=== PATIENT | male | born 1995 | race Caucasian/White ===

== ENCOUNTER 2017-05-30 12:30 | Emergency (ER) | payer SELFPAY ==
[2017-05-30] MEDS ORDERED: NORMAL SALINE 1000 ML 1,000 ML IV ONE (13:09)
--- NOTE | 2017-05-30 13:11 | ER Document Report ---
ED Medical Screen (RME) - General Chief Complaint: Nausea/Vomiting/Diarrhea Stated Complaint: ABDOMINAL PAIN Time Seen by Provider: 05/30/17 13:09 Mode of Arrival: Ambulatory Information source: Patient - HPI Patient complains to provider of: abd pain Onset: Yesterday - pot. with c/o "stomach flu" since yesterday with occ. AU and vomiting and diarrhea times 2 - Related Data Allergies/Adverse Reactions: iodine Allergy (Verified 05/30/17 12:52) Penicillins Allergy (Verified 05/30/17 12:52) Sulfa (Sulfonamide Antibiotics) Allergy (Verified 05/30/17 12:52) Home Medications: Current Home Medications No Home Medications 05/30/17 [History] Past Medical History - Social History Chew tobacco use (# tins/day): No Frequency of alcohol use: None Drug Abuse: None Renal/ Medical History: Denies: Hx Peritoneal Dialysis Past Surgical History: Reports: Hx Abdominal Surgery - hernia, Hx Cholecystectomy, Hx Orthopedic Surgery - Right hand, Hx Tonsillectomy - T&A - Immunizations Hx Diphtheria, Pertussis, Tetanus Vaccination: Yes Physical Exam - Vital signs Vitals: Temp Pulse BP Pulse Ox 99.1 F 110 H 117/75 97 05/30/17 12:48 05/30/17 12:48 05/30/17 12:48 05/30/17 12:48 Course - Vital Signs Vital signs: Temp Pulse Resp BP Pulse Ox 99.1 F 110 H 117/75 97 05/30/17 12:48 05/30/17 12:48 05/30/17 12:48 05/30/17 12:48
[2017-05-30 13:36] LABS: ABSOLUTE BASOPHILS # (AUTO) 0.1 10^3/uL (0.0-0.2); ABSOLUTE EOSINOPHILS # (AUTO) 0.4 10^3/uL (0.0-0.6); ABSOLUTE LYMPHOCYTES (AUTO) 1.6 10^3/uL (0.5-4.7); ABSOLUTE MONOCYTES (AUTO) 0.8 10^3/uL (0.1-1.4); ABSOLUTE NEUT (AUTO) 6.5 10^3/uL (1.7-8.2); BASOPHILS % (AUTO) 0.6 % (0-2); HEMATOCRIT 45.8 % (37.9-51.0); HEMOGLOBIN 15.6 g/dL (13.5-17.0); LYMPHOCYTES % (AUTO) 16.8 % (13-45); MEAN CORPUSCULAR HEMOGLOBIN 26.8 pg (27.0-33.4); MEAN CORPUSCULAR VOLUME 79 fl (80-97); MONOCYTES % (AUTO) 8.7 % (3-13); RED BLOOD COUNT 5.82 10^6/uL (4.35-5.55); RED CELL DISTRIBUTION WIDTH 13.4 % (11.5-14.0); SEGMENTED NEUTROPHILS % (AUTO) 69.9 % (42-78); WHITE BLOOD COUNT 9.3 10^3/uL (4.0-10.5)
[2017-05-30 13:40] LABS: APPEARANCE,URINE CLEAR; BILIRUBIN,URINE NEGATIVE (NEGATIVE); GLUCOSE, URINE NEGATIVE (NEGATIVE); KETONES,URINE NEGATIVE (NEGATIVE); LEUKOCYTE ESTERASE,URINE NEGATIVE (NEGATIVE); NITRITE,URINE NEGATIVE (NEGATIVE); PROTEIN,URINE NEGATIVE (NEGATIVE); URINE SPECIFIC GRAVITY 1.028
[2017-05-30 13:54] LABS: ALANINE AMINOTRANSFERASE 44 U/L (21-72); ALBUMIN 5.2 g/dL (3.5-5.0); ALKALINE PHOSPHATASE 106 U/L (38-126); ANION GAP 18 (5-19); ASPARTATE AMINO TRANSFERASE 21 U/L (17-59); BILIRUBIN,DIRECT 0.4 mg/dL (0.0-0.4); BILIRUBIN,TOTAL 0.8 mg/dL (0.2-1.3); BLOOD UREA NITROGEN 11 mg/dL (7-20); CALCIUM 10.3 mg/dL (8.4-10.2); CARBON DIOXIDE 24 mmol/L (22-30); CHLORIDE 101 mmol/L (98-107); CREATININE RESULT 1.04 mg/dL (0.52-1.25); GLUCOSE 114 mg/dL (75-110); POTASSIUM 3.9 mmol/L (3.6-5.0); SODIUM 142.6 mmol/L (137-145); TOTAL PROTEIN 7.5 g/dL (6.3-8.2)
[2017-05-30] MEDS ORDERED: ONDANSETRON HCL INJ/PF 4 MG/2 ML SDV IV ONE (14:39)
[2017-05-30] MEDS ORDERED: KETOROLAC TROMETHAMINE INJ/PF 30 MG/1 ML SDV IV ONE (14:39)
--- NOTE | 2017-05-30 14:44 | ER Document Report ---
ED General - General Chief Complaint: Nausea/Vomiting/Diarrhea Stated Complaint: ABDOMINAL PAIN Time Seen by Provider: 05/30/17 13:09 Mode of Arrival: Ambulatory Notes: 21-year-old male with history of cystic fibrosis presents with multiple symptoms. Symptoms started upon awakening yesterday morning with a sore throat which is slightly better now. He has had progressive cough with some purulent sputum rhinorrhea and eventually some vomiting and diarrhea associated. He has had some general weakness and general malaise. No specific pain but just generally uncomfortable. Has had some subjective fever. He does use Symbicort as well as a rescue inhaler of which he used the Symbicort this morning. Really has no specific shortness of breath. One loose stool today. No vomiting but really has not taken much in at this point. No specific chest pain. No specific abdominal discomfort as well. - Related Data Allergies/Adverse Reactions: iodine Allergy (Verified 05/30/17 12:52) Penicillins Allergy (Verified 05/30/17 12:52) Sulfa (Sulfonamide Antibiotics) Allergy (Verified 05/30/17 12:52) Past Medical History - General Information source: Patient - Social History Smoking Status: Never Smoker Chew tobacco use (# tins/day): No Frequency of alcohol use: None Drug Abuse: None Family History: Reviewed & Not Pertinent Pulmonary Medical History: Reports: Other - Cystic fibrosis Renal/ Medical History: Denies: Hx Peritoneal Dialysis Past Surgical History: Reports: Hx Abdominal Surgery - hernia, Hx Cholecystectomy, Hx Orthopedic Surgery - Right hand, Hx Tonsillectomy - T&A - Immunizations Hx Diphtheria, Pertussis, Tetanus Vaccination: Yes Review of Systems - Review of Systems -: Yes All other systems reviewed and negative Physical Exam - Vital signs Vitals: Temp Pulse BP Pulse Ox 99.1 F 110 H 117/75 97 05/30/17 12:48 05/30/17 12:48 05/30/17 12:48 05/30/17 12:48 - Notes Notes: GENERAL: VS as per nursing doc. Well-appearing, well-nourished and in no acute distress. HEAD: Atraumatic, normocephalic. EYES: Pupils equal round and reactive to light, extraocular movements intact, sclera anicteric, no conjunctival injection or discharge. ENT: Nares patent, oropharynx clear without exudates, slightly dry mucous membranes, very mild posterior erythema. NECK: Normal range of motion, supple without lymphadenopathy. LUNGS: Breath sounds clear to auscultation bilaterally and equal. No wheezes rales or rhonchi. HEART: Tachycardic, normal rhythm, no murmurs. ABDOMEN: Soft, mild generalized tenderness, hyperactive bowel sounds. No guarding, no rebound. No masses appreciated. No Hammond sign. BACK: No CVA tenderness. EXTREMITIES: Normal range of motion, no calf tenderness, no edema. NEUROLOGICAL: Cranial nerves grossly intact. Normal speech. Normal sensory and motor exams. No gross cerebellar abnormalities. PSYCH: Normal mood, normal affect. SKIN: Warm, dry, normal turgor, no lesions noted. Course - Re-evaluation Re-evalutation: 05/30/17 16:34 Patient feels better overall. He does have a history of cystic fibrosis. With the chest symptoms and he. Green sputum, we will treat him. He has done well with Zithromax in the past. I discussed with him if it seems worse he needs to return as we will need to increase in cover for Pseudomonas. - Vital Signs Vital signs: Temp Pulse Resp BP Pulse Ox 98.3 F 78 16 115/77 98 05/30/17 17:01 05/30/17 17:01 05/30/17 17:01 05/30/17 17:01 05/30/17 17:01 - Laboratory Result Diagrams: 05/30/17 13:20 05/30/17 13:20 Laboratory results interpreted by me: 05/30/17 05/30/17 05/30/17 13:15 13:20 13:20 RBC 5.82 H MCV 79 L MCH 26.8 L Glucose 114 H Calcium 10.3 H Albumin 5.2 H Urine Urobilinogen 4.0 H - Diagnostic Test Radiology reviewed: Image reviewed - No acute process Discharge - Discharge Clinical Impression: Bronchitis, Viral syndrome Condition: Good Disposition: HOME, SELF-CARE Instructions: Intravenous (IV) Fluids (OM), Viral Syndrome (OM) Additional Instructions: Bronchitis You have acute bronchitis. This disease is an infection or inflammation of the air passageways in your lungs. Symptoms usually include cough, low grade fever, shortness of breath, and wheezing. The cough usually persists for a couple of weeks. Most cases of bronchitis get better without antibiotics. We prescribe antibiotics when we believe bacteria are damaging your airways, or if there's high risk the bronchitis will worsen into pneumonia. Increase your fluid intake. A cool mist humidifier may make your lungs more comfortable. An expectorant (cough medicine that loosens phlegm) can help. If you smoke, STOP!!! Recovery from bronchitis can be somewhat slow, but you should see improvement within a day or two. Repeated episodes of bronchitis may result in lung damage -- for example, chronic bronchitis, recurrent pneumonias, or emphysema. Call the doctor if you develop increasing fever, shortness of breath, chest pain, bloody sputum, or otherwise worsen. If you have not improved at all after several days, contact the physician. Finished all of the antibiotic. Start tomorrow. May use the nausea medication if needed. Start with clear liquids and slowly advance her diet. Return immediately for worsening or concern. Prescriptions: Promethazine HCl [Phenergan 25 mg Tablet] 1 tab PO Q4HP PRN #10 tablet PRN Reason: Azithromycin [Zithromax 250 mg Tablet] 250 mg PO DAILY #4 tablet Forms: Return to Work Referrals: [facility] [Provider Group] - Follow up in 1 week
--- NOTE | 2017-05-30 15:25 | RADIOLOGY REPORT (SQ) ---
EXAM DESCRIPTION: CHEST PA/LAT COMPLETED DATE/TIME: 05/30/2017 3:10 pm REASON FOR STUDY: Cough, CF Hx COMPARISON: None. EXAM PARAMETERS: NUMBER OF VIEWS: two views TECHNIQUE: Digital Frontal and Lateral radiographic views of the chest acquired. RADIATION DOSE: NA LIMITATIONS: none FINDINGS: LUNGS AND PLEURA: No opacities, masses or pneumothorax. No pleural effusion. MEDIASTINUM AND HILAR STRUCTURES: No masses or contour abnormalities. HEART AND VASCULAR STRUCTURES: Heart normal size. No evidence for failure. BONES: No acute findings. HARDWARE: Clips right upper quadrant post cholecystectomy OTHER: No other significant finding. IMPRESSION: NO SIGNIFICANT RADIOGRAPHIC FINDING IN THE CHEST. TECHNICAL DOCUMENTATION: JOB ID: [id number] [employer]- All Rights Reserved
[2017-05-30 17:07] VITALS: BP 115/77
== END 2017-05-30 17:04 | disposition home or self-care (01) ==
LOC: ER 12:30
DX: J20.8 Acute bronchitis due to other specified organisms (principal); R11.2 Nausea with vomiting, unspecified; R19.7 Diarrhea, unspecified; R53.1 Weakness; E84.9 Cystic fibrosis, unspecified; Z88.0 Allergy status to penicillin; Z88.2 Allergy status to sulfonamides; Z90.49 Acquired absence of other specified parts of digestive tract
CPT/HCPCS: 99284; 96361; 96374; 96375; 36415; 87070; 87880; 85025; 80053; 81001; 71020; J1885; J2405; J7030